=== PATIENT | male | born 1960 | race Caucasian/White ===

== ENCOUNTER 2020-02-07 20:32 | Observation (INO) ==
--- NOTE | 2020-02-07 20:37 | Emergency Department Note ---
Impression & Plan Atypical chest pain, History of coronary artery disease, Hyperglycemia ED Provider Note NAME: MATI MANCUSO AGE: 59 SEX: M : 1960 ARRIVES VIA: Family Vehicle INFORMANT: Patient, ED PROVIDER(S): Ronald Herman MD Chief Complaint: Chest pain HPI: Patient does present with chest pain. The patient states is left-sided and achy. The patient states is nonradiating but is occasionally exertional and states that does get worse going up or down stairs. Patient denies any nausea or vomiting. Patient states that sometimes the cold air seems to make it worse. Patient denies infectious symptoms including cough, fever, chills, or loss of taste or smell. The patient denies any known Covid contacts. The patient does have a known history of CAD status post stents and does take aspirin and Plavix. The patient states he is compliant with his medications. The patient does see Dr. Brady through [facility] and does see Dr. Ferguson as a primary care physician. The patient states he has had no recent changes in his blood pressure medications but also did notice he seemed to be more hypert ensive. The patient denies any prior history of DVT or PE. The patient is a non-smoker and may drink 2-3 drinks over the weekend but did not have any alcoholic beverages this past weekend. Patient states that there also may be a component of anxiety as he does worry. The patient states that this may be somewhat similar to when he required a stent in the past. Patient did take his baby aspirin and has already taken his Plavix today. ROS: See HPI for pertinent positives and negatives. A total of 10 systems were reviewed and otherwise negative. Past medical history: See below Surgical history: See below Social history: See below Physical Exam: GENERAL: Wearing glasses and a mask. NAD, non-toxic. EYE EXAM: Normal conjunctiva. PERRL, no anisocoria and EOM's grossly intact w/o pain. NECK: Supple, no nuchal rigidity, no adenopathy, non-tender. No signs of meningismus. LUNGS: Clear to auscultation. Normal chest wall mechanics. HEART: NSR, no MRG. ABDOMEN: Abdomen soft, non-tender, normo-active bowel sounds, no masses, no rebound or guarding. BACK: No CVA TTP. SKIN: No rashes and no bruising. UPPER EXTREMITIES: Upper extremities are grossly normal. LOWER EXTREMITIES: Grossly normal, no edema. Negative Homans' sign bilaterally NEURO EXAM: A&O x3, cranial nerves II-XII grossly intact, normal speech, moves all 4 extremities on command w/o issue. Differential diagnoses: Cardiac ischemia, aortic dissection, pulmonary embolism, pneumothorax, pneumonia, pericarditis, myocarditis, esophageal rupture, GERD, cholecystitis, pancreatitis, musculoskeletal, as well as other pathologies. Course: Patient was seen and evaluated the bedside. Full history physical exam was performed. EKG: Location: Chest pain Sinus tachycardia, rate of 105, normal intervals, normal axis, T wave version in lead III with very slight depression of the lateral leads. T wave inversion in lead III does appear new from comparison EKG May 10, 2019. Imaging Studies: 1 view chest x-ray Impression: Cardiac silhouette may be slightly enlarged from comparison chest x-ray completed on May 09. No obvious consolidation pleural effusion or pneumothorax. Cardiac monitoring: An order was placed for continuous cardiac monitoring. The monitor shows a rate of 92 with sinus rhythm. MDM: Patient was seen due to concern for hypertension and chest pain. Blood work was obtained along with an EKG troponin chest x-ray. Chest x-ray shows possible slight large amount of the cardiac silhouette compared to prior. The patient upon reassessment did have improvement in symptoms. The patient did receive 3 baby aspirin. Patient's EKG shows a single T wave inversion that is change from comparison EKG. Given the patient's intermittent symptoms and stating that it feels somewhat similar with the T wave inversion change and improvement in his chest pain with aspirin believe the patient would benefit from further observation and testing given his prior history of CAD and stents. I did speak with the on-call hospitalist Dr. Lara and the patient was admitted to the [facility] service. Past Med/Surg History Medical History (Updated 02/07/20 @ 23:17 by Ronald Herman MD) Chest pain (04/14/14) Diabetes mellitus Hyperglycemia Hyperlipidemia Hypertension Surgical History H/O heart artery stent Social History Smoking Status: Former smoker Tobacco Type: Cigarettes Preferred Language: Venezuelan Feels Safe at Home: Yes Allergies Allergies Allergy/AdvReac Type Severity Reaction Status Date / Time No Known Allergies Allergy Verified 02/07/20 21:39 Home Meds Home Medications Medication Instructions Recorded Confirmed aspirin 81 mg PO QAM 05/07/18 02/07/20 atenolol 50 mg PO QAM 05/07/18 02/07/20 atorvastatin 40 mg PO HS 05/07/18 02/07/20 clopidogrel [Plavix] 75 mg PO QAM 05/07/18 02/07/20 glipizide 5 mg PO BID 05/07/18 02/07/20 ibuprofen [Advil] 200 - 400 mg PO QID PRN 05/07/18 02/07/20 [id number]-ast 1 cap PO QAM 05/07/18 02/07/20 [krill oil] lorazepam 1 mg PO BID PRN 05/07/18 02/07/20 lisinopril 5 mg PO Q2D 05/10/19 02/07/20 amlodipine 10 mg PO QAM 02/07/20 02/07/20 omeprazole magnesium [Prilosec OTC] 20 mg PO QAM 02/07/20 02/07/20 Results & Data (ED) Vital Signs Vital Signs - 24 hr 02/07/20 20:38 02/07/20 20:47 02/07/20 20:50 Temperature 37.1 C Temperature Source Oral Pulse Rate 104 H 94 H 97 H Pulse Rate [Bilateral Apical] Pulse Rate from SpO2 Sensor 97 H 97 H Respiratory Rate 20 14 12 Respiratory Depth Normal Blood Pressure 207/101 H 136/112 H Blood Pressure [Right Arm] Blood Pressure Mean 136 125 Blood Pressure Mean [Right Arm] Pulse Oximetry 95 94 94 Oxygen Delivery Method Room Air Sepsis Recent Fever Within 48 Hours No Sepsis New/Unexplained Change in Mental Status N/A Sepsis Action Taken by Nursing No Action Required 02/07/20 20:53 02/07/20 21:00 02/07/20 21:10 Temperature Temperature Source Pulse Rate 96 H 95 H 90 Pulse Rate [Bilateral Apical] 94 H Pulse Rate from SpO2 Sensor 96 H 95 H 90 Respiratory Rate 13 17 16 Respiratory Depth Blood Pressure 150/85 H Blood Pressure [Right Arm] 150/85 H Blood Pressure Mean 101 Blood Pressure Mean [Right Arm] 106 Pulse Oximetry 93 93 95 Oxygen Delivery Method Room Air Sepsis Recent Fever Within 48 Hours Sepsis New/Unexplained Change in Mental Status Sepsis Action Taken by Nursing 02/07/20 21:20 02/07/20 21:30 02/07/20 21:32 Temperature Temperature Source Pulse Rate 87 87 95 H Pulse Rate [Bilateral Apical] Pulse Rate from SpO2 Sensor 87 87 94 H Respiratory Rate 18 21 18 Respiratory Depth Blood Pressure 148/91 H Blood Pressure [Right Arm] Blood Pressure Mean 105 Blood Pressure Mean [Right Arm] Pulse Oximetry 96 95 94 Oxygen Delivery Method Sepsis Recent Fever Within 48 Hours Sepsis New/Unexplained Change in Mental Status Sepsis Action Taken by Nursing 02/07/20 21:33 02/07/20 21:40 02/07/20 21:50 Temperature Temperature Source Pulse Rate 93 H 85 94 H Pulse Rate [Bilateral Apical] Pulse Rate from SpO2 Sensor 92 H 86 Respiratory Rate 12 19 19 Respiratory Depth Blood Pressure Blood Pressure [Right Arm] Blood Pressure Mean Blood Pressure Mean [Right Arm] Pulse Oximetry 96 93 Oxygen Delivery Method Sepsis Recent Fever Within 48 Hours Sepsis New/Unexplained Change in Mental Status Sepsis Action Taken by Nursing 02/07/20 22:00 02/07/20 22:01 02/07/20 22:17 Temperature Temperature Source Pulse Rate 94 H 88 83 Pulse Rate [Bilateral Apical] Pulse Rate from SpO2 Sensor 81 Respiratory Rate 16 14 20 Respiratory Depth Blood Pressure Blood Pressure [Right Arm] Blood Pressure Mean Blood Pressure Mean [Right Arm] Pulse Oximetry 96 Oxygen Delivery Method Sepsis Recent Fever Within 48 Hours Sepsis New/Unexplained Change in Mental Status Sepsis Action Taken by Nursing 02/07/20 22:20 02/07/20 22:30 02/07/20 22:43 Temperature Temperature Source Pulse Rate 82 88 Pulse Rate [Bilateral Apical] 92 H Pulse Rate from SpO2 Sensor 85 82 Respiratory Rate 15 14 20 Respiratory Depth Blood Pressure Blood Pressure [Right Arm] 172/90 H Blood Pressure Mean Blood Pressure Mean [Right Arm] 117 Pulse Oximetry 95 97 95 Oxygen Delivery Method Room Air Sepsis Recent Fever Within 48 Hours Sepsis New/Unexplained Change in Mental Status Sepsis Action Taken by [facility] Medications Current Medication List: was personally reviewed by me Laboratory Data Attestation: I reviewed the patient's lab results. Result diagrams: 02/07/20 20:47 02/07/20 20:47 Lab Results 02/07/20 02/07/20 02/07/20 Range/Units 20:47 20:47 20:47 WBC 7.44 (4.8-10.8) K/uL RBC 5.02 (4.7-6.1) M/uL Hgb 14.8 (14.0-18.0) g/dL Hct 42.1 (42-52) % MCV 83.9 (80-100) fL MCH 29.5 (25-34) pg MCHC 35.2 (32-36) g/dL RDW Std Deviation 38.5 (36.4-46.3) fL RDW Coeff of Natalia 12.7 (11.5-14.5) % Plt Count 275 (130-400) K/uL MPV 10.6 H (7.4-10.4) fL Immature Gran % (Auto) 0.3 % Neut % (Auto) 63.4 % Lymph % (Auto) 26.1 % [place] % (Auto) 8.1 % Eos % (Auto) 1.7 % Baso % (Auto) 0.4 % Neut # (Auto) 4.72 (1.4-6.5) K/uL Lymph # (Auto) 1.94 (1.2-3.4) K/uL [place] # (Auto) 0.60 H (0.11-0.59) K/uL Eos # (Auto) 0.13 (0-0.5) K/uL Baso # (Auto) 0.03 (0-0.2) K/uL Immature Gran # (Auto) 0.02 (0.00-0.02) K/uL PT 10.7 (9.0-12.0) Seconds INR 1.0 (0.9-1.1) APTT 24.5 (21.0-31.0) Seconds PTT Ratio 0.9 Sodium 141 (136-145) mmol/L Potassium 3.4 L (3.5-5.1) mmol/L Chloride 109 H (98-107) mmol/L Carbon Dioxide 24 (21-32) mmol/L Anion Gap 9.0 (3-11) BUN 15 (7-18) mg/dl Creatinine 1.26 (0.6-1.4) mg/dl Est Cr Clr Drug Dosing 79.3 ml/min Est GFR ( Amer) 71.9 Est GFR (Non-Af Amer) 62.0 BUN/Creatinine Ratio 11.7 (10-20) Glucose 215 H (70-99) mg/dl Calcium 9.0 (8.5-10.1) mg/dl Total Bilirubin 0.6 (0.2-1) mg/dl AST 22 (15-37) U/L ALT 63 (12-78) U/L Alkaline Phosphatase 102 (45-117) U/L Troponin I < 0.015 (0-0.045) ng/ml Total Protein 7.7 (6.4-8.2) gm/dl Albumin 4.2 (3.4-5.0) gm/dl Globulin 3.5 (2.5-4.0) gm/dl Albumin/Globulin Ratio 1.2 (0.9-2) Lipase 316 (73-393) U/L SARS-CoV-2 Ag (Rapid) (Negative) 02/07/20 Range/Units 22:29 WBC (4.8-10.8) K/uL RBC (4.7-6.1) M/uL Hgb (14.0-18.0) g/dL Hct (42-52) % MCV (80-100) fL MCH (25-34) pg MCHC (32-36) g/dL RDW Std Deviation (36.4-46.3) fL RDW Coeff of Natalia (11.5-14.5) % Plt Count (130-400) K/uL MPV (7.4-10.4) fL Immature Gran % (Auto) % Neut % (Auto) % Lymph % (Auto) % [place] % (Auto) % Eos % (Auto) % Baso % (Auto) % Neut # (Auto) (1.4-6.5) K/uL Lymph # (Auto) (1.2-3.4) K/uL [place] # (Auto) (0.11-0.59) K/uL Eos # (Auto) (0-0.5) K/uL Baso # (Auto) (0-0.2) K/uL Immature Gran # (Auto) (0.00-0.02) K/uL PT (9.0-12.0) Seconds INR (0.9-1.1) APTT (21.0-31.0) Seconds PTT Ratio Sodium (136-145) mmol/L Potassium (3.5-5.1) mmol/L Chloride (98-107) mmol/L Carbon Dioxide (21-32) mmol/L Anion Gap (3-11) BUN (7-18) mg/dl Creatinine (0.6-1.4) mg/dl Est Cr Clr Drug Dosing ml/min Est GFR ( Amer) Est GFR (Non-Af Amer) BUN/Creatinine Ratio (10-20) Glucose (70-99) mg/dl Calcium (8.5-10.1) mg/dl Total Bilirubin (0.2-1) mg/dl AST (15-37) U/L ALT (12-78) U/L Alkaline Phosphatase (45-117) U/L Troponin I (0-0.045) ng/ml Total Protein (6.4-8.2) gm/dl Albumin (3.4-5.0) gm/dl Globulin (2.5-4.0) gm/dl Albumin/Globulin Ratio (0.9-2) Lipase (73-393) U/L SARS-CoV-2 Ag (Rapid) Negative (Negative) Administered Medications Discontinued Medications Aspirin (Aspirin Chew 324 Mg) 243 mg PO NOW STA Stop: 02/07/20 20:50 Last Admin: 02/07/20 20:55 Dose: 243 mg Documented by: [id number] Discharge Plan Visit Data Chief Complaint: Chest Pain Stated Complaint: CHEST PAIN, HYPERTENSION ED Provider: Ronald Herman Discharge Problem: Atypical chest pain, History of coronary artery disease, Hyperglycemia Forms Stand Alone Forms: My [facility] redealize Prescriptions Prescriptions: No Action amlodipine 10 mg tablet 10 mg PO QAM RF: 0 omeprazole magnesium [Prilosec OTC] 20 mg Tablet,Delayed Release (Dr/Ec) 20 mg PO QAM RF: 0 atorvastatin 40 mg Tablet 40 mg PO HS RF: 0 clopidogrel [Plavix] 75 mg Tablet 75 mg PO QAM RF: 0 aspirin 81 mg Tablet,Delayed Release (Dr/Ec) 81 mg PO QAM RF: 0 ibuprofen [Advil] 200 mg Tablet 200 - 400 mg PO QID PRN (Reason: Pain) RF: 0 lorazepam 1 mg tablet 1 mg PO BID PRN (Reason: Anxiety) RF: 0 atenolol 50 mg tablet 50 mg PO QAM RF: 0 glipizide 5 mg tablet 5 mg PO BID RF: 0 [id number]-[id number]-ast [krill oil] [id number],[id number] mg Capsule 1 cap PO QAM RF: 0 lisinopril 5 mg tablet 5 mg PO Q2D RF: 0
[2020-02-07] MEDS ORDERED: NITROGLYCERIN SL 0.4 MG/TAB TAB SL PRN ×2 (20:49→23:52)
[2020-02-07] MEDS ORDERED: ASPIRIN CHEW 324 MG PO STA (20:49)
[2020-02-07 21:03] LABS: Basophils # (auto) 0.03 K/uL (0-0.2); Basophils % (auto) 0.4 %; Eosinophils # (auto) 0.13 K/uL (0-0.5); Eosinophils % (auto) 1.7 %; Hematocrit (blood only) 42.1 % (42-52); Hemoglobin 14.8 g/dL (14.0-18.0); Immature Granulocytes # (auto) 0.02 K/uL (0.00-0.02); Immature Granulocytes % (auto) 0.3 %; Lymphocytes # (auto) 1.94 K/uL (1.2-3.4); Lymphocytes % (auto) 26.1 %; Mean Corpuscular Hemoglobin 29.5 pg (25-34); Mean Corpuscular Hgb Conc 35.2 g/dL (32-36); Mean Corpuscular Volume 83.9 fL (80-100); Mean Platelet Volume 10.6 fL (7.4-10.4); Monocytes % (auto) 8.1 %; Neutrophils # (auto) 4.72 K/uL (1.4-6.5); Neutrophils % (auto) 63.4 %; Platelet Count 275 K/uL (130-400); RDW Coefficient of Variation 12.7 % (11.5-14.5); RDW Standard Deviation 38.5 fL (36.4-46.3); Red Blood Count 5.02 M/uL (4.7-6.1); White Blood Count 7.44 K/uL (4.8-10.8)
[2020-02-07 21:13] LABS: Partial Thromboplastin Ratio 0.9; Partial Thromboplastin Time 24.5 Seconds (21.0-31.0); Prothrombin Time 10.7 Seconds (9.0-12.0)
[2020-02-07 21:19] LABS: Alanine Aminotransferase 63 U/L (12-78); Albumin Level 4.2 gm/dl (3.4-5.0); Aspartate Aminotransferase 22 U/L (15-37); BUN Creatinine Ratio 11.7 (10-20); Blood Urea Nitrogen 15 mg/dl (7-18); Carbon Dioxide 24 mmol/L (21-32); Chloride 109 mmol/L (98-107); Creatinine Clr Calc Pharmacy 79.3 ml/min; Est GFR (African American) 71.9; Glucose 215 mg/dl (70-99); Lipase 316 U/L (73-393); Potassium 3.4 mmol/L (3.5-5.1); Sodium 141 mmol/L (136-145)
[2020-02-07 21:26] LABS: Albumin Globulin Ratio 1.2 (0.9-2); Alkaline Phosphatase 102 U/L (45-117); Bilirubin,Total 0.6 mg/dl (0.2-1); Globulin 3.5 gm/dl (2.5-4.0); Total Protein 7.7 gm/dl (6.4-8.2); Troponin I < 0.015 ng/ml (0-0.045)
[2020-02-07] MEDS ORDERED: ONDANSETRON INJ 2 MG/ML 2 ML VIAL IV PRN (23:52)
[2020-02-07] MEDS ORDERED: LORazepam 1 MG TAB PO PRN (23:52)
[2020-02-07] MEDS ORDERED: lisinopril 5 MG TAB PO SCH (23:52)
[2020-02-07] MEDS ORDERED: ACETAMINOPHEN 325 MG TAB PO PRN (23:52)
[2020-02-07] MEDS ORDERED: POTASSIUM CHLORIDE CRTAB 20 MEQ TABCR PO STA (23:52)
[2020-02-07] MEDS ORDERED: LORazepam 0.5 MG TAB PO STA (23:52)
[2020-02-08] MEDS ORDERED: GLUCAGON FOR INJ 1 MG VIAL IM PRN (00:15)
[2020-02-08] MEDS ORDERED: DEXTROSE 50% 50 ML SYRINGE IV PRN (00:15)
[2020-02-08] MEDS ORDERED: CARBOHYDRATES FOR HYPOGLYCEMIA PO PRN (00:15)
[2020-02-08] MEDS ORDERED: GLUCOSE 40% GEL 15 GM TUBE PO PRN (00:15)
[2020-02-08] MEDS ORDERED: GLUCOSE 10 TABS/TUBE PO PRN (00:15)
[2020-02-08] MEDS: INSULIN ASPART 100 UNITS/ML 3 ML PEN SC SCH ×2 (00:52→06:09)
[2020-02-08 05:41] LABS: Basophils # (auto) 0.02 K/uL (0-0.2); Basophils % (auto) 0.3 %; Eosinophils # (auto) 0.18 K/uL (0-0.5); Eosinophils % (auto) 2.5 %; Hematocrit (blood only) 42.5 % (42-52); Hemoglobin 14.5 g/dL (14.0-18.0); Immature Granulocytes # (auto) 0.03 K/uL (0.00-0.02); Immature Granulocytes % (auto) 0.4 %; Lymphocytes # (auto) 2.04 K/uL (1.2-3.4); Lymphocytes % (auto) 28.8 %; Mean Corpuscular Hemoglobin 28.8 pg (25-34); Mean Corpuscular Hgb Conc 34.1 g/dL (32-36); Mean Corpuscular Volume 84.5 fL (80-100); Mean Platelet Volume 10.5 fL (7.4-10.4); Monocytes # (auto) 0.61 K/uL (0.11-0.59); Monocytes % (auto) 8.6 %; Neutrophils # (auto) 4.21 K/uL (1.4-6.5); Neutrophils % (auto) 59.4 %; Platelet Count 252 K/uL (130-400); RDW Coefficient of Variation 12.5 % (11.5-14.5); RDW Standard Deviation 38.3 fL (36.4-46.3); Red Blood Count 5.03 M/uL (4.7-6.1); White Blood Count 7.09 K/uL (4.8-10.8)
[2020-02-08 06:08] LABS: BUN Creatinine Ratio 13.3 (10-20); Blood Urea Nitrogen 13 mg/dl (7-18); Calcium 8.9 mg/dl (8.5-10.1); Carbon Dioxide 26 mmol/L (21-32); Chloride 109 mmol/L (98-107); Creatinine Clr Calc Pharmacy 100.1 ml/min; Est GFR (African American) 96.2; Glucose 157 mg/dl (70-99); Magnesium 2.1 mg/dl (1.8-2.4); Potassium 3.8 mmol/L (3.5-5.1); Sodium 140 mmol/L (136-145)
[2020-02-08 06:13] LABS: Chol HDL Ratio 3; Cholesterol 119 mg/dl (0-200); HDL Cholesterol 40 mg/dl; LDL Cholesterol Calculated 60 mg/dl; Triglycerides 95 mg/dl (0-150); Troponin I < 0.015 ng/ml (0-0.045); VLDL Cholesterol 19 mg/dl
--- NOTE | 2020-02-08 06:18 | History and Physical Report ---
DATE OF ADMISSION: 02/07/2020 CHIEF COMPLAINT: Chest pain. HISTORY OF PRESENT ILLNESS: A 59-year-old male with past medical history significant for CAD status post drug-eluting stent to LAD with residual coronary artery disease of moderate severity involving the right coronary and the left circumflex, history of hypertension, diabetes, hyperlipidemia, remote episode of atrial fibrillation without any recurrence, GERD, chronic rhinitis, presents with chest pain. The patient states about a week ago when he went outside in the cold he had noticed some chest discomfort in the left side of his chest. When he came back to the house it had gone away. It happened one more time, but today it is coming and going, about 4/10 in severity, which made him anxious and which made his blood pressure go up. The patient decided to come to the ER. Currently, the patient received aspirin and currently the patient is chest pain free, resting comfortably and hemodynamically stable. He was earlier short of breath, but he thinks it is because of his anxiety. Denies any headache. No blurred visions, no earache, no runny nose, no sore throat, no cough, no nausea, no abdominal pain. Normal bowel and bladder movements. No hematuria or blood in the stools. No swelling in the legs, no rash. He says because of coronavirus he is not going outside and he gained some weight. ALLERGIES: No known drug allergies. PAST MEDICAL HISTORY: As mentioned above. PAST SURGICAL HISTORY: Cardiac stent placement, atherectomy. MEDICATIONS: The patient is on amlodipine 10 mg p.o. a.m., aspirin 81 mg p.o. a.m., atenolol 50 mg p.o. a.m., atorvastatin 40 mg p.o. at bedtime, Plavix 75 mg p.o. a.m., glipizide 5 mg p.o. b.i.d., Advil 200 -400 mg q.i.d. p.r.n., Krill oil 1 capsule p.o. a.m., lisinopril 5 mg every other day, Ativan 1 mg p.o. b.i.d. p.r.n., omeprazole 20 mg p.o. a.m. FAMILY HISTORY: Significant for mother had heart disorder in her 60s; father had emphysema. SOCIAL HISTORY: . Former smoker, smoked for 25 years, 2 packs a day. No alcohol use. REVIEW OF SYSTEMS: As per HPI. Rest of the review of systems negative. PHYSICAL EXAMINATION: GENERAL: The patient is obese, not in acute distress. VITAL SIGNS: Temperature 37.1, pulse 92, respiratory rate 20, blood pressure 172/90, oxygen 95% on room air. HEENT: No pallor, no icterus. Pupils equal, round, and reactive to light. Oral mucosa moist. NECK: No JVD. No neck masses seen. CARDIOVASCULAR: S1, S2 heard, regular rate and rhythm. No murmur, no gallop. RESPIRATORY: Normal AP diameter. No accessory muscle use. No wheezing. No crackles. ABDOMEN: Soft, bowel sounds present, nontender. No distention. CENTRAL NERVOUS SYSTEM: Cranial nerves II-XII grossly intact, nonfocal. EXTREMITIES: No edema, no erythema. LABORATORY DATA: WBC 7.4, hemoglobin 14.8, hematocrit 42.1, platelets 275. PT 9.7, INR 1, APTT 24.5. Sodium 141, potassium 3.4, chloride 109, bicarbonate 24, BUN 15, creatinine 1.2, serum glucose 215, calcium 9, total bilirubin 0.6, AST 22, ALT 63, alkaline phosphatase 102. Troponin 1 was less than 0.015. Lipase 16. SARS-CoV-2 antigen rapid negative. IMAGING DATA: Chest x-ray, no acute findings seen. EKG: Sinus tachycardia with a rate of 105, no significant change from previous EKG. ASSESSMENT AND PLAN: This is a 59-year-old male who presents with chest pain. 1. Chest pain, rule out acute coronary syndrome, history of coronary artery history with stent to the LAD and residual moderate severity of right coronary circumflex disease. Initial workup was negative. Will observe in tele floor. Serial cardiac enzymes, echocardiogram. Keep him n.p.o. and consult cardiology in a.m. for further recommendations. Currently, chest pain free. 2. History of coronary artery disease status post stent. Continue home aspirin, Plavix, beta osito, and statin. Cardiology wanted to change from atorvastatin to Crestor, but the patient said he could not afford it, and also as per the patient, he says he is only taking [id number] mg at bedtime. We will follow the fasting lipid profile. 3. Diabetes: Hold glipizide. Will place on insulin sliding scale. Follow HbA1c, follow the blood sugars. 4. Hypertension: On atenolol 50 mg daily, amlodipine 10 mg a.m. And On , lisinopril 5 mg every other day because he could not tolerate higher dose of lisinopril. Will monitor the blood pressure. 5. Gastroesophageal reflux disease, continue his omeprazole. 6. History of atrial fibrillation in the remote past with no recurrence, currently on atenolol, aspirin, and Plavix. 7. Deep venous thrombosis prophylaxis, sequential compression devices. 8. Disposition: Closely monitor in the tele floor. Level 1 full code. Expect to discharge home and follow with family doctor. MARICRUZ
[2020-02-08 06:26] LABS: Estimated Average Glucose 180 mg/dl; Hemoglobin A1C 7.9 % (4.5-5.6)
--- NOTE | 2020-02-08 07:16 | XRay Report ---
SINGLE VIEW CHEST CLINICAL HISTORY: Atypical chest pain. FINDINGS: An AP, portable, upright chest radiograph is compared to study dated 05/10/2019. The cardiom ediastinal silhouette is unremarkable noting atherosclerotic calcification of the thoracic aorta. The re is bibasilar scarring/atelectasis. No airspace consolidation or large pleural effusion is identifi ed. No pneumothorax is seen. The bony thorax is grossly intact. IMPRESSION: No active disease in the chest. ACT 112: Negative or not required by law. Electronically signed by: Herman Carvajal M.D. 02/08/2020 7:15 AM
--- NOTE | 2020-02-08 08:38 | Cardiology Consultation ---
Date of Consultation February 08, 2020 Assessment & Plan (1) Atypical chest pain: (2) History of coronary artery disease: (3) H/O heart artery stent: The patient exercised into 3 stages of the Collins protocol achieving 95% of the age-predicted maximum heart rate without difficulty. He did have some atypical upper left chest discomfort during exercise that did not limit his ability to exercise. There were no significant EKG changes during exercise or recovery. The stress echo cardiogram portion of study is negative. I believe the patient may be discharged to outpatient follow-up. His primary record center coordinator is Dr. Chi and he actually had a an appointment this morning at 9 AM which he missed. That appointment will have to be rescheduled and the patient should have follow-up with his primary record center coordinator in the next 1 to 3 weeks. History of Present Illness Attending Physician: Satnam Magana MD History of Present Illness The patient was seen and evaluated in the stress lab. He has been having atypical chest discomfort mainly when he goes out into the cold air. No progressive shortness of breath. No orthopnea. Past medical history: 1. Atherosclerotic coronary artery disease, non ST segment elevation myocardial infarction 03/2014 2. Drug-eluting stent implantation left anterior descending March 2014 with residual coronary disease of moderate severity right coronary and left circumflex 3. Hypertension 4. Dyslipidemia 5. Type 2 diabetes mellitus 6. Remote episode of atrial fibrillation without recurrence Allergies Allergy/AdvReac Type Severity Reaction Status Date / Time No Known Allergies Allergy Verified 02/07/20 21:39 Home Medications Medication Instructions Recorded Confirmed Type aspirin 81 mg PO QAM 05/07/18 02/07/20 History atenolol 50 mg PO QAM 05/07/18 02/07/20 History atorvastatin 40 mg PO HS 05/07/18 02/07/20 History clopidogrel [Plavix] 75 mg PO QAM 05/07/18 02/07/20 History glipizide 5 mg PO BID 05/07/18 02/07/20 History ibuprofen [Advil] 200 - 400 mg PO QID PRN 05/07/18 02/07/20 History fwamu-zz-1-guk-qqz-hroirkc-ast 1 cap PO QAM 05/07/18 02/07/20 History [krill oil] lorazepam 1 mg PO BID PRN 05/07/18 02/07/20 History lisinopril 5 mg PO Q2D 05/10/19 02/07/20 History amlodipine 10 mg PO QAM 02/07/20 02/07/20 History omeprazole magnesium [Prilosec OTC] 20 mg PO QAM 02/07/20 02/07/20 History Patient History Medical History Chest pain (04/14/14) Diabetes mellitus Hyperglycemia Hyperlipidemia Hypertension Surgical History H/O heart artery stent Social History Smoking Status: Never smoker Tobacco Type: Cigarettes Hx Alcohol Use: Yes Hx Substance Use: No Preferred Language: Maltese Communication Ability: Effective Gun Perforator Loader Required: No Beliefs That Will Affect Care: None Current Living Situation: Alone Feels Safe at Home: Yes Safety Concerns: Feels Safe At This Time Assistive Devices: Glasses Review of Systems Review of Systems: All systems reviewed & are unremarkable except as noted in HPI & below Physical Exam Physical Exam: General: no acute distress and stated age Head: normocephalic, no masses, lesions, tenderness or abnormalities Eyes: conjunctiva are pink and non-injected, sclera clear Neck: supple, no adenopathy, no bruits, normal jugular venous pulse, no hepatojugular reflux Chest: normal shape and normal respiratory effort Lungs: clear to auscultation and percussion Cardiac Exam: - regular rate & rhythm, no murmurs gallops or rubs - normal S1, normal S2 Pulses: 2(+) throughout Abdomen: abdomen soft, non-tender, no abnormal masses and no hepatosplenomegaly Musculoskeletal: no gait disturbance, no joint inflammation, no deforming arthritis Extremities: no edema and no cyanosis Neuro: grossly normal exam Results & Data ([facility]) Vital Signs (Past 12 Hours) Vital Signs Temp Pulse Pulse Resp BP BP BP 02/08/20 07:02 36.9 C 73 20 147/85 H 02/08/20 07:00 72 02/08/20 03:19 36.8 C 69 18 128/77 02/07/20 23:52 78 02/07/20 23:45 37.2 C 75 75 H 156/91 H 02/07/20 23:18 80 20 161/88 H 02/07/20 22:43 92 H 20 172/90 H 02/07/20 22:30 88 14 02/07/20 22:20 82 15 02/07/20 22:17 83 20 02/07/20 22:01 88 14 02/07/20 22:00 94 H 16 02/07/20 21:50 94 H 19 02/07/20 21:40 85 19 02/07/20 21:33 93 H 12 02/07/20 21:32 95 H 18 148/91 H 02/07/20 21:30 87 21 02/07/20 21:20 87 18 02/07/20 21:10 90 16 02/07/20 21:00 95 H 17 02/07/20 20:53 96 H 94 H 13 150/85 H 150/85 H 02/07/20 20:50 97 H 12 02/07/20 20:47 94 H 14 136/112 H 02/07/20 20:38 37.1 C 104 H 20 207/101 H Pulse Ox 02/08/20 07:02 96 02/08/20 07:00 02/08/20 03:19 93 02/07/20 23:52 02/07/20 23:45 96 02/07/20 23:18 96 02/07/20 22:43 95 02/07/20 22:30 97 02/07/20 22:20 95 02/07/20 22:17 96 02/07/20 22:01 02/07/20 22:00 02/07/20 21:50 02/07/20 21:40 93 02/07/20 21:33 96 02/07/20 21:32 94 02/07/20 21:30 95 02/07/20 21:20 96 02/07/20 21:10 95 02/07/20 21:00 93 02/07/20 20:53 93 02/07/20 20:50 94 02/07/20 20:47 94 02/07/20 20:38 95 Laboratory Results Laboratory Results - last 24 hr 02/07/20 02/07/20 02/07/20 20:47 20:47 20:47 WBC 7.44 RBC 5.02 Hgb 14.8 Hct 42.1 MCV 83.9 MCH 29.5 MCHC 35.2 RDW Std Deviation 38.5 RDW Coeff of Natalia 12.7 Plt Count 275 MPV 10.6 H Immature Gran % (Auto) 0.3 Neut % (Auto) 63.4 Lymph % (Auto) 26.1 Lawrence % (Auto) 8.1 Eos % (Auto) 1.7 Baso % (Auto) 0.4 Neut # (Auto) 4.72 Lymph # (Auto) 1.94 Lawrence # (Auto) 0.60 H Eos # (Auto) 0.13 Baso # (Auto) 0.03 Immature Gran # (Auto) 0.02 PT 10.7 INR 1.0 APTT 24.5 PTT Ratio 0.9 Sodium 141 Potassium 3.4 L Chloride 109 H Carbon Dioxide 24 Anion Gap 9.0 BUN 15 Creatinine 1.26 Est Cr Clr Drug Dosing 79.3 Est GFR ( Amer) 71.9 Est GFR (Non-Af Amer) 62.0 BUN/Creatinine Ratio 11.7 Glucose 215 H POC Glucose Estimat Average Glucose Hemoglobin A1c Calcium 9.0 Magnesium Total Bilirubin 0.6 AST 22 ALT 63 Alkaline Phosphatase 102 Troponin I < 0.015 Total Protein 7.7 Albumin 4.2 Globulin 3.5 Albumin/Globulin Ratio 1.2 Triglycerides Cholesterol LDL Cholesterol, Calc VLDL Cholesterol, Calc HDL Cholesterol Cholesterol/HDL Ratio Lipase 316 SARS-CoV-2 Ag (Rapid) 02/07/20 02/08/20 02/08/20 22:29 00:16 05:17 WBC RBC Hgb Hct MCV MCH MCHC RDW Std Deviation RDW Coeff of Natalia Plt Count MPV Immature Gran % (Auto) Neut % (Auto) Lymph % (Auto) Lawrence % (Auto) Eos % (Auto) Baso % (Auto) Neut # (Auto) Lymph # (Auto) Lawrence # (Auto) Eos # (Auto) Baso # (Auto) Immature Gran # (Auto) PT INR APTT PTT Ratio Sodium 140 Potassium 3.8 Chloride 109 H Carbon Dioxide 26 Anion Gap 5.0 BUN 13 Creatinine 0.99 Est Cr Clr Drug Dosing 100.1 Est GFR ( Amer) 96.2 Est GFR (Non-Af Amer) 83.0 BUN/Creatinine Ratio 13.3 Glucose 157 H POC Glucose 173 H Estimat Average Glucose Hemoglobin A1c Calcium 8.9 Magnesium 2.1 Total Bilirubin AST ALT Alkaline Phosphatase Troponin I < 0.015 Total Protein Albumin Globulin Albumin/Globulin Ratio Triglycerides 95 Cholesterol 119 LDL Cholesterol, Calc 60 VLDL Cholesterol, Calc 19 HDL Cholesterol 40 Cholesterol/HDL Ratio 3 Lipase SARS-CoV-2 Ag (Rapid) Negative 02/08/20 02/08/20 02/08/20 05:17 05:17 06:06 WBC 7.09 RBC 5.03 Hgb 14.5 Hct 42.5 MCV 84.5 MCH 28.8 MCHC 34.1 RDW Std Deviation 38.3 RDW Coeff of Natalia 12.5 Plt Count 252 MPV 10.5 H Immature Gran % (Auto) 0.4 Neut % (Auto) 59.4 Lymph % (Auto) 28.8 Lawrence % (Auto) 8.6 Eos % (Auto) 2.5 Baso % (Auto) 0.3 Neut # (Auto) 4.21 Lymph # (Auto) 2.04 Lawrence # (Auto) 0.61 H Eos # (Auto) 0.18 Baso # (Auto) 0.02 Immature Gran # (Auto) 0.03 H PT INR APTT PTT Ratio Sodium Potassium Chloride Carbon Dioxide Anion Gap BUN Creatinine Est Cr Clr Drug Dosing Est GFR ( Amer) Est GFR (Non-Af Amer) BUN/Creatinine Ratio Glucose POC Glucose 180 H Estimat Average Glucose 180 Hemoglobin A1c 7.9 H Calcium Magnesium Total Bilirubin AST ALT Alkaline Phosphatase Troponin I Total Protein Albumin Globulin Albumin/Globulin Ratio Triglycerides Cholesterol LDL Cholesterol, Calc VLDL Cholesterol, Calc HDL Cholesterol Cholesterol/HDL Ratio Lipase SARS-CoV-2 Ag (Rapid) Diagnostic Findings EKG shows no acute changes. Echocardiogram is unremarkable and shows no wall motion abnormalities that would suggest ischemic heart disease and no significant valvular pathology. Medications Administered Current Inpatient Medications Acetaminophen (Acetaminophen 325 Mg Tab) 650 mg PO Q4H PRN PRN Reason: Pain or Fever Stop: 03/08/20 23:51 Amlodipine Besylate (Amlodipine Besylate 5 Mg Tab) 10 mg PO [facility] Stop: 03/09/20 08:59 Last Admin: 02/08/20 07:56 Dose: 10 mg Documented by: Aspirin (Aspirin 81 Mg Ectab) [facility] [place] Stop: 03/09/20 08:59 Last Admin: 02/08/20 07:56 Dose: 81 mg Documented by: Atenolol (Atenolol 50 Mg Tablet) 50 mg PO [facility] Stop: 03/09/20 08:59 Last Admin: 02/08/20 07:56 Dose: 50 mg Documented by: Atorvastatin Calcium (Atorvastatin 40 Mg Tab) 40 mg PO HS [facility] Stop: 03/09/20 20:59 Clopidogrel Bisulfate (Clopidogrel Bisulfate 75 Mg Tab) 75 mg PO QAM [facility] Stop: 03/09/20 08:59 Last Admin: 02/08/20 07:56 Dose: 75 mg Documented by: Dextrose (Dextrose 50% 50 Ml Syringe) 25 - 50 ml IV UD PRN; Protocol PRN Reason: Hypoglycemia Protocol Stop: 03/09/20 00:14 Glucagon (Glucagon For Inj 1 Mg Vial) 1 mg IM UD PRN; Protocol PRN Reason: Hypoglycemia Protocol Stop: 03/09/20 00:14 Glucose (Glucose 40% Gel 15 Gm Tube) 15 - 30 gm PO UD PRN; Protocol PRN Reason: Hypoglycemia Protocol Stop: 03/09/20 00:14 Glucose (Glucose 10 Tabs/Tube) 4 - 8 tabs PO UD PRN; Protocol PRN Reason: Hypoglycemia Protocol Stop: 03/09/20 00:14 Insulin Aspart (Insulin Aspart 100 Units/Ml 3 Ml Pen) 0 units SC Q6 [facility] Stop: 03/09/20 00:29 Last Admin: 02/08/20 06:09 Dose: 2 units Documented by: Lisinopril (Lisinopril 5 Mg Tab) 5 mg PO Q2D [facility] Stop: 03/10/20 08:59 Lorazepam (Lorazepam 1 Mg Tab) 1 mg PO BID PRN PRN Reason: Anxiety Stop: 03/08/20 23:51 Miscellaneous (Carbohydrates For Hypoglycemia ) 15 - 30 gm PO UD PRN PRN Reason: Hypoglycemia Treatment Stop: 03/09/20 00:14 Miscellaneous Information (Nursing To Pharmacy Communication) 1 ea N/A TODAY [facility] Stop: 03/09/20 10:29 Nitroglycerin (Nitroglycerin Sl 0.4 Mg/Tab Tab) 0.4 mg SL UD PRN PRN Reason: Chest Pain Stop: 03/08/20 20:48 Nitroglycerin (Nitroglycerin Sl 0.4 Mg/Tab Tab) 0.4 mg SL UD PRN PRN Reason: Chest Pain Stop: 03/08/20 23:51 Ondansetron HCl (Ondansetron Inj 2 Mg/Ml 2 Ml Vial) 4 mg IV Q6H PRN PRN Reason: Nausea Stop: 03/08/20 23:51 Pantoprazole Sodium (Pantoprazole 40 Mg Tab) 40 mg PO [facility] Stop: 03/09/20 08:59 Last Admin: 02/08/20 07:56 Dose: 40 mg Documented by:
[2020-02-08] MEDS ORDERED: CLOPIDOGREL BISULFATE 75 MG TAB PO SCH (09:00)
[2020-02-08] MEDS ORDERED: ASPIRIN 81 MG ECTAB PO SCH (09:00)
[2020-02-08] MEDS ORDERED: amLODIPine BESYLATE 5 MG TAB PO SCH (09:00)
[2020-02-08] MEDS ORDERED: PANTOprazole 40 MG TAB PO SCH (09:00)
[2020-02-08] MEDS ORDERED: ATENOLOL 50 MG TABLET PO SCH (09:00)
[2020-02-08] MEDS ORDERED: Nursing to Pharmacy Communication SCH (10:30)
[2020-02-08] MEDS ORDERED: INSULIN ASPART 100 UNITS/ML 3 ML PEN SC SCH (11:30)
[2020-02-08] MEDS ORDERED: ATORVASTATIN 40 MG TAB PO SCH (21:00)
--- NOTE | 2020-02-08 22:18 | Electrocardiogram Report ---
Test Reason : Blood Pressure : / mmHG Vent. Rate : 105 BPM Atrial Rate : 105 BPM P-R Int : 188 ms QRS Dur : 096 ms QT Int : 352 ms P-R-T Axes : 060 -05 013 degrees QTc Int : 465 ms Poor data quality, interpretation may be adversely affected Sinus tachycardia Cannot rule out Inferior infarct When compared with ECG of 10-MAY-2019 16:04, No significant change was found Confirmed by Bhanu Caldwell ([id number]) on 02/08/2020 10:18:19 PM Referred By: REFERRED SELF Confirmed By:Bhanu Caldwell
--- NOTE | 2020-02-08 22:43 | Hospitalist Progress Note ---
Date of Service February 08, 2020 Assessment & Plan (1) Atypical chest pain: ASSESSMENT AND PLAN: This is a 59-year-old male who presents with chest pain. 1. Chest pain, acute coronary syndrome ruled out history of coronary artery history with stent to the LAD and residual moderate severity of right coronary circumflex disease. --Troponins negative --EKG no signs of acute ischemia or infarct --Status post exercise stress test: Negative --Rehab Therapist consulted, Dr. Dudley, recommend to resume usual medications, follow-up with the title searcher as an outpatient 2. History of coronary artery disease status post stent. --Continue usual aspirin, Plavix, beta osito, and statin. 3. Diabetes --A1c 7.9 --Continue outpatient follow-up 4. Hypertension --Continue atenolol 50 mg daily, amlodipine 10 mg a.m. And On , lisinopril 5 mg 5. Gastroesophageal reflux disease, continue his omeprazole. 6. History of atrial fibrillation in the remote past with no recurrence, currently on atenolol, aspirin, and Plavix. Position Discharge to home Follow-up with primary care physician in 1 week Follow-up with title searcher as scheduled Admission and Anticipated Discharge Date Admission Date: February 07, 2020 Subjective delayed entry Date of service noted above Seen sitting up in bed, comfortable, not in distress, in good spirits States he feels much better overall Chest pain has resolved No shortness of breath, palpitations, dizziness No other symptoms States that he is ready to be discharged Review of Systems Review of Systems: All systems reviewed & are unremarkable except as noted in Subjective Physical Exam Physical Exam: General- oriented x 3, not in distress, speaks in sentences with no effort or accessory muscle use Eyes- anicteric Neck- no JVD Lungs- clear breath sounds bilaterally, no rales/wheezes Heart- normal rate, regular rhythm; no murmurs Chest-reproducible pain on palpation of the left pectoral muscle region Abdomen- normal bowel sounds, nondistended, soft, nontender Extremities- no pretibial edema, no calf tenderness Neuro- alert, oriented x 3; no gross focal neurologic deficits Skin- warm & dry Results & Data Results & Data ([facility]) Vital Signs (Past 12 Hours) Vital Signs Temp Pulse Resp BP BP Pulse Ox 02/08/20 11:24 36.6 C 81 20 124/80 128/77 95 02/08/20 10:52 36.6 C 81 20 124/80 95 Laboratory Results All noted and reviewed
--- NOTE | 2020-02-09 06:18 | Electrocardiogram Report ---
Test Reason : Blood Pressure : / mmHG Vent. Rate : 073 BPM Atrial Rate : 073 BPM P-R Int : 152 ms QRS Dur : 090 ms QT Int : 406 ms P-R-T Axes : 047 013 027 degrees QTc Int : 447 ms Normal sinus rhythm Normal ECG When compared with ECG of 07-FEB-2020 20:41, No significant change was found Confirmed by Bhanu Caldwell ([id number]) on 02/09/2020 6:17:50 AM Referred By: REFERRED SELF Confirmed By:Bhanu Caldwell
[2020-02-09] MEDS ORDERED: lisinopril 5 MG TAB PO SCH (09:00)
--- NOTE | 2020-02-13 19:24 | Discharge Summary ---
Date of Service February 13, 2020 Admission HPI Per Admitting Provider HISTORY OF PRESENT ILLNESS: A 59-year-old male with past medical history significant for CAD status post drug-eluting stent to LAD with residual coronary artery disease of moderate severity involving the right coronary and the left circumflex, history of hypertension, diabetes, hyperlipidemia, remote episode of atrial fibrillation without any recurrence, GERD, chronic rhinitis, presents with chest pain. The patient states about a week ago when he went outside in the cold he had noticed some chest discomfort in the left side of his chest. When he came back to the house it had gone away. It happened one more time, but today it is coming and going, about 4/10 in severity, which made him anxious and which made his blood pressure go up. The patient decided to come to the ER. Currently, the patient received aspirin and currently the patient is chest pain free, resting comfortably and hemodynamically stable. He was earlier short of breath, but he thinks it is because of his anxiety. Denies any headache. No blurred visions, no earache, no runny nose, no sore throat, no cough, no nausea, no abdominal pain. Normal bowel and bladder movements. No hematuria or blood in the stools. No swelling in the legs, no rash. He says because of coronavirus he is not going outside and he gained some weight. Admission Exam Per Admitting Provider VITAL SIGNS: Temperature 37.1, pulse 92, respiratory rate 20, blood pressure 172/90, oxygen 95% on room air. HEENT: No pallor, no icterus. Pupils equal, round, and reactive to light. Oral mucosa moist. NECK: No JVD. No neck masses seen. CARDIOVASCULAR: S1, S2 heard, regular rate and rhythm. No murmur, no gallop. RESPIRATORY: Normal AP diameter. No accessory muscle use. No wheezing. No crackles. ABDOMEN: Soft, bowel sounds present, nontender. No distention. CENTRAL NERVOUS SYSTEM: Cranial nerves II-XII grossly intact, nonfocal. EXTREMITIES: No edema, no erythema. Principal Diagnosis Atypical chest pain, likely musculoskeletal etiology Acute coronary syndrome ruled out Discharge Exam General- oriented x 3, not in distress, speaks in sentences with no effort or accessory muscle use Eyes- anicteric Neck- no JVD Lungs- clear breath sounds bilaterally, no rales/wheezes Heart- normal rate, regular rhythm; no murmurs Chest-reproducible pain on palpation of the left pectoral muscle region Abdomen- normal bowel sounds, nondistended, soft, nontender Extremities- no pretibial edema, no calf tenderness Neuro- alert, oriented x 3; no gross focal neurologic deficits Skin- warm & dry Discharge Data Allergies Allergy/AdvReac Type Severity Reaction Status Date / Time No Known Allergies Allergy Verified 02/07/20 21:39 Consultations 02/07/20 21:57 ED Decision to Admit Stat 02/07/20 23:52 Consult Case Management - Discharge Planning Routine 02/08/20 08:00 Consult Cardiology Routine Hospital Course (1) Atypical chest pain: ASSESSMENT AND PLAN: This is a 59-year-old male who presents with chest pain. 1. Chest pain, acute coronary syndrome ruled out history of coronary artery history with stent to the LAD and residual moderate severity of right coronary circumflex disease. --Troponins negative --EKG no signs of acute ischemia or infarct --Status post exercise stress test: Negative --Master Dyer consulted, Dr. Dudley, recommend to resume usual medications, follow-up with the scale shooter as an outpatient 2. History of coronary artery disease status post stent. --Continue usual aspirin, Plavix, beta osito, and statin. 3. Diabetes --A1c 7.9 --Continue outpatient follow-up 4. Hypertension --Continue atenolol 50 mg daily, amlodipine 10 mg a.m. And On , lisinopril 5 mg 5. Gastroesophageal reflux disease, continue his omeprazole. 6. History of atrial fibrillation in the remote past with no recurrence, currently on atenolol, aspirin, and Plavix. Position Discharge to home Follow-up with primary care physician in 1 week Follow-up with scale shooter as scheduled Total Time Total Time Spent Total Time Spent (In Minutes): > 30 minutes Discharge Plan Discharge Items Patient Disposition: Home - Self-Care Reason For Visit: CHEST PAIN Discharge Diagnosis: CHEST PAIN, LIKELY MUSCULO-SKELETAL PAIN Activity: As commented below Activity Comment: NO HEAVY LIFITING ON THE LEFT ARM Non-emergency contact: Primary Care Provider and Master Dyer Call non-emergency contact if: you have any medication questions, your symptoms worsen, your pain is not controlled, your pain is worsening, your pain is unusual for you, your pain is concerning for you and you have a fever Follow-up/Referrals: Isreal Nguyen DO [Master Dyer] - Melvin Shelton DO [Primary Care Provider] - (Date & Time 02/14/2020 3:00 PM Provider Melvin Shelton DO Department General Internal Medicine [facility] ) Diet: Carb Consistent or DM2 and Heart Healthy Addtl Attending Provider Instructions: YOU MAY RESUME YOUR USUAL MEDICATION LIST. CALL PRIMARY CARE PHYSICIAN OR RETURN TO THE ER IF WITH WORSENING OF SYMPTOMS. FOLLOW UP WITH PRIMARY CARE PHYSICIAN NEXT WEEK OUTLINE ABOVE. FOLLOW UP WITH MANHOLE STRIPPER IN 3-4 WEEKS. Pending Studies at Discharge: No Stand-Alone Forms: My [facility] tvCompass, Smoking Cessation Medications and DC Order Prescriptions: Continued amlodipine 10 mg tablet 10 mg PO QAM RF: 0 omeprazole magnesium [Prilosec OTC] 20 mg Tablet,Delayed Release (Dr/Ec) 20 mg PO QAM RF: 0 atorvastatin 40 mg Tablet 40 mg PO HS RF: 0 clopidogrel [Plavix] 75 mg Tablet 75 mg PO QAM RF: 0 aspirin 81 mg Tablet,Delayed Release (Dr/Ec) 81 mg PO QAM RF: 0 ibuprofen [Advil] 200 mg Tablet 200 - 400 mg PO QID PRN (Reason: Pain) RF: 0 lorazepam 1 mg tablet 1 mg PO BID PRN (Reason: Anxiety) RF: 0 atenolol 50 mg tablet 50 mg PO QAM RF: 0 glipizide 5 mg tablet 5 mg PO BID RF: 0 [id number]-[id number]-ast [krill oil] [id number] mg Capsule 1 cap PO QAM RF: 0 lisinopril 5 mg tablet 5 mg PO Q2D RF: 0 Discharge Orders: Discharge Order (Routine); Ordered 02/08/20 Ordered By: Satnam Sylvester/Other Patient Handouts: High Blood Sugar (Hyperglycemia), Hypoglycemia (Low Blood Sugar), Managing Type 2 Diabetes, 5 Steps for Eating Healthier Admission Data Admit Date/Time: 02/07/20 22:58 Attending Provider: Satnam Magana Admit Provider: Ramakrishna Lara Primary Care Provider: Melvin Shelton Other Providers: Ramakrishna Lara ; Mike Guallpa ; Isreal Nguyen ; Julio Potter ; Cristobal Hoffmann ; Zane Dudley ; Luke Denney ; Gerda Gutierres ; Lisa Mayes ; Zachariah Campbell ; Michael Matamoros. Other Interventions: Discharge Summary Assessment (RN) Last Done: 02/08/20 11:24
== END 2020-02-08 12:17 | disposition home or self-care (01) ==
LOC: ED 20:32 → 2S 20:32 → SUATTDRO 22:58 → 2S 23:34